=== PATIENT | female | born 1950 | race Caucasian/White ===

== ENCOUNTER 2016-11-29 13:26 | Day surgery (SDC) | payer BC ==
[2006-03-14 06:23] VITALS: BP 157/76
[~2016-11-29] VITALS: Ht 162.6 cm; Wt 76.3 kg
[~2016-11-29 13:26] MED LIST: FLAGYL500 MG PO; NO HOME MEDICATIONS; SERTRALINE100 MG PO
[2016-11-29 13:52] VITALS: BP 149/84; PULSE 109; TEMP 97.5
[2016-11-29] MEDS ORDERED: PROBIOTIC-MAJOR PO (13:57)
[2016-11-29] MEDS ORDERED: MULTIPLE VITAMI1 CAP PO (13:58)
[2016-11-29] MEDS ORDERED: VANCOMYCIN PO (13:59)
[2016-11-29 15:29] VITALS: BP 128/70; PULSE 92; TEMP 97.1
[2016-11-29 15:45] VITALS: BP 149/84; PULSE 99
[2016-11-29 16:00] VITALS: BP 110/55; PULSE 94
== END 2016-11-29 16:45 | disposition home or self-care (01) ==
LOC: SDCO 13:26
DX: K52.9 Noninfective gastroenteritis and colitis, unspecified (principal); K62.4 Stenosis of anus and rectum; K63.89 Other specified diseases of intestine; Z85.43 Personal history of malignant neoplasm of ovary
CPT/HCPCS: J2250; J3010; J7030

== ENCOUNTER 2018-05-13 13:09 | Day surgery (SDC) | payer BC ==
[2006-03-14 06:23] VITALS: BP 157/76
[~2018-05-13] VITALS: Ht 162.6 cm; Wt 77.7 kg
[~2018-05-13 13:09] MED LIST changes: +MULTIPLE VITAMI1 CAP PO; +PROBIOTIC-MAJOR PO; +VANCOMYCIN PO
[2018-05-13 13:59] VITALS: BP 124/59; PULSE 94; TEMP 98
[2018-05-13 15:10] VITALS: BP 115/81; PULSE 84; TEMP 97.6
[2018-05-13 15:30] VITALS: BP 119/54; PULSE 82
== END 2018-05-13 16:10 | disposition home or self-care (01) ==
LOC: SDCO 13:09
DX: K52.9 Noninfective gastroenteritis and colitis, unspecified (principal); A04.72 Enterocolitis due to Clostridium difficile, not specified as recurrent; K63.89 Other specified diseases of intestine; K92.1 Melena; C56.9 Malignant neoplasm of unspecified ovary; Z90.710 Acquired absence of both cervix and uterus; Z90.10 Acquired absence of unspecified breast and nipple; Z90.49 Acquired absence of other specified parts of digestive tract
CPT/HCPCS: J2250; J2405; J3010; J7030

== ENCOUNTER 2019-01-07 12:49 | Outpatient (CLI) | payer MEDICARE, OTHER ==
[2006-03-14 06:23] VITALS: BP 157/76
[~2019-01-07] VITALS: Ht 162.6 cm; Wt 71.1 kg
[2019-01-07 13:52] LABS: MEAN CELL VOLUME 90 fl (80.0-100.0); MEAN CORPUSCULAR HEMOGLOBIN 29 pg (27.0-31.0); MEAN CORPUSCULAR HGB CONC 32 g/dl (33.0-37.0); MEAN PLATELET VOLUME 9.2 fl (7.4-10.4); PLATELET COUNT 353 K/mm3 (130-400); RED BLOOD COUNT 3.78 M/mm3 (4.10-5.30); REDCELL DISTRIBUTION WIDTH-CV 12.8 % (11.5-14.5)
[2019-01-07 14:02] LABS: ALBUMIN 3.6 gm/dL (3.5-5.0); BILIRUBIN,TOTAL 0.2 mg/dL (0.0-1.0); CALCIUM 8.7 mg/dL (8.4-10.2); CREATININE, serum 0.58 (0.52-1.25); POTASSIUM 3.9 mmol/L (3.4-5.0); TOTAL PROTEIN 6.9 gm/dL (6.4-8.2)
[2019-01-07 14:09] LABS: HEMATOCRIT 33.9 % (37.0-47.0)
[2019-01-07 15:05] VITALS: BP 128/65; PULSE 82
[2019-01-07] MEDS ORDERED: CRESTOR 10MG10 MG PO (15:55)
[2019-01-07] MEDS ORDERED: LEXAPRO 10MG10 MG PO (15:56)
== END 2019-01-07 16:10 | disposition home or self-care (01) ==
LOC: EUO 12:49
PROVIDERS: Internal Medicine Gastroenterology
DX: K51.90 Ulcerative colitis, unspecified, without complications (principal); Z79.899 Other long term (current) drug therapy
CPT/HCPCS: J1200; J1644; J2920; J3380; J7050

== ENCOUNTER 2019-02-04 13:57 | Outpatient (CLI) | payer MEDICARE, OTHER ==
[2006-03-14 06:23] VITALS: BP 157/76
[~2019-02-04] VITALS: Ht 162.6 cm; Wt 70.1 kg
[~2019-02-04 13:57] MED LIST changes: +CRESTOR 10MG10 MG PO; +LEXAPRO 10MG10 MG PO
[2019-02-04 14:47] LABS: HEMOGLOBIN 10.1 g/dl (12.5-16.0); MEAN CELL VOLUME 91 fl (80.0-100.0); MEAN CORPUSCULAR HEMOGLOBIN 29 pg (27.0-31.0); MEAN CORPUSCULAR HGB CONC 31 g/dl (33.0-37.0); MEAN PLATELET VOLUME 9.1 fl (7.4-10.4); PLATELET COUNT 365 K/mm3 (130-400); RED BLOOD COUNT 3.55 M/mm3 (4.10-5.30); REDCELL DISTRIBUTION WIDTH-CV 12.7 % (11.5-14.5)
[2019-02-04 14:56] LABS: HEMATOCRIT 32.2 % (37.0-47.0)
[2019-02-04 14:59] LABS: ALBUMIN 3.5 gm/dL (3.5-5.0); BILIRUBIN,TOTAL 0.2 mg/dL (0.0-1.0); CALCIUM 8.6 mg/dL (8.4-10.2); CREATININE, serum 0.69 (0.52-1.25); POTASSIUM 4.1 mmol/L (3.4-5.0); TOTAL PROTEIN 6.5 gm/dL (6.4-8.2)
[2019-02-04] MEDS ORDERED: IMODIUM A-D2 MG PO (15:08)
[2019-02-04] MEDS ORDERED: PROBIOTIC FORMU1 CAP PO (15:08)
[2019-02-04 15:10] VITALS: BP 100/42; PULSE 70; TEMP 98.2
--- NOTE | 2019-02-04 19:43 | NUR ---
Lab was drawn for pt's mail in lab draw that she brought in today. This RN and Nino with Lab worked on getting this mailed off for the pt.
== END 2019-02-04 17:35 | disposition home or self-care (01) ==
LOC: EUO 13:57
PROVIDERS: Internal Medicine Gastroenterology
DX: K51.90 Ulcerative colitis, unspecified, without complications (principal); Z79.899 Other long term (current) drug therapy
CPT/HCPCS: J1200; J1644; J2930; J3380; J7050

== ENCOUNTER 2019-05-14 09:00 | Outpatient (RCR) | payer MEDICARE, OTHER ==
[2006-03-14 06:23] VITALS: BP 157/76
[2019-04-02 14:19] LABS: MEAN CELL VOLUME 87 fl (80.0-100.0); MEAN CORPUSCULAR HEMOGLOBIN 28 pg (27.0-31.0); MEAN CORPUSCULAR HGB CONC 32 g/dl (33.0-37.0); MEAN PLATELET VOLUME 9.1 fl (7.4-10.4); PLATELET COUNT 409 K/mm3 (130-400); RED BLOOD COUNT 3.88 M/mm3 (4.10-5.30)
[2019-04-02 14:28] LABS: ALBUMIN 3.9 gm/dL (3.5-5.0); BILIRUBIN,TOTAL 0.3 mg/dL (0.0-1.0); CALCIUM 9.1 mg/dL (8.4-10.2); CREATININE, serum 0.63 (0.52-1.25); POTASSIUM 4.2 mmol/L (3.4-5.0); TOTAL PROTEIN 7.1 gm/dL (6.4-8.2)
[2019-04-02 14:32] LABS: HEMATOCRIT 33.9 % (37.0-47.0)
[2019-04-02 15:35] VITALS: BP 101/66; PULSE 72; TEMP 97.4
[2019-04-02 16:05] VITALS: BP 115/56; PULSE 65; TEMP 97.4
[2019-04-02 16:35] VITALS: BP 118/70; PULSE 67; TEMP 97
[2019-04-02 17:05] VITALS: BP 106/55; PULSE 71; TEMP 97
[2019-04-02 17:35] VITALS: BP 111/68; PULSE 77; TEMP 97
[2019-04-16 11:18] LABS: HEMOGLOBIN 10.6 g/dl (12.5-16.0); MEAN CELL VOLUME 89 fl (80.0-100.0); MEAN CORPUSCULAR HEMOGLOBIN 28 pg (27.0-31.0); MEAN CORPUSCULAR HGB CONC 32 g/dl (33.0-37.0); MEAN PLATELET VOLUME 9.2 fl (7.4-10.4); PLATELET COUNT 372 K/mm3 (130-400); RED BLOOD COUNT 3.78 M/mm3 (4.10-5.30)
[2019-04-16 11:24] LABS: HEMATOCRIT 33.5 % (37.0-47.0)
[2019-04-16 11:27] LABS: ALBUMIN 3.7 gm/dL (3.5-5.0); BILIRUBIN,TOTAL 0.3 mg/dL (0.0-1.0); CALCIUM 8.8 mg/dL (8.4-10.2); CREATININE, serum 0.72 (0.52-1.25); POTASSIUM 4.2 mmol/L (3.4-5.0); TOTAL PROTEIN 6.7 gm/dL (6.4-8.2)
[2019-04-16 12:36] VITALS: BP 111/59; PULSE 65; TEMP 97.5
[2019-04-16 13:00] VITALS: BP 107/58; PULSE 65; TEMP 6
[2019-04-16 13:30] VITALS: BP 94/53; PULSE 59
[2019-04-16 14:00] VITALS: BP 103/51; PULSE 59; TEMP 97.8
[2019-04-16 14:30] VITALS: BP 103/54; PULSE 61
[2019-04-16 14:45] VITALS: BP 103/53; PULSE 61; TEMP 97.8
[~2019-05-14] VITALS: Ht 162.6 cm; Wt 67.6 kg
[2019-05-14] VITALS (7 sets, daily range): BP systolic 92–105; BP diastolic 44–70; PULSE 61–74; TEMP 97.9–98.2
[~2019-05-14 09:00] MED LIST changes: +CALCIUM CARBON500 M1 PO; +FOLIC ACID 11 MG/TA1 PO; +IMODIUM A-D2 MG PO; +INTEGRA PLUS1 CAP PO; +MULTI VITAMINS1 TAB PO; +NATURE'S BLEND1 T11 PO; +PROBIOTIC FORMU1 CAP PO; +TREXALL15 MG PO
[2019-05-14 09:33] LABS: HEMATOCRIT 34.2 % (37.0-47.0); MEAN CELL VOLUME 90 fl (80.0-100.0); MEAN CORPUSCULAR HEMOGLOBIN 29 pg (27.0-31.0); MEAN CORPUSCULAR HGB CONC 32 g/dl (33.0-37.0); MEAN PLATELET VOLUME 9.2 fl (7.4-10.4); PLATELET COUNT 329 K/mm3 (130-400)
[2019-05-14 09:45] LABS: ALBUMIN 3.8 gm/dL (3.5-5.0); BILIRUBIN,TOTAL 0.4 mg/dL (0.0-1.0); CREATININE, serum 0.69 (0.52-1.25); POTASSIUM 4.4 mmol/L (3.4-5.0); TOTAL PROTEIN 6.8 gm/dL (6.4-8.2)
== END 2019-05-14 13:24 | disposition still patient (30) ==
LOC: EUO 09:00
PROVIDERS: Family Medicine; Internal Medicine Gastroenterology
DX: K51.90 Ulcerative colitis, unspecified, without complications (principal); Z79.899 Other long term (current) drug therapy
CPT/HCPCS: J1644; J7050; Q5103

== ENCOUNTER 2019-06-25 12:54 | Outpatient (CLI) | payer MEDICARE, OTHER ==
[2006-03-14 06:23] VITALS: BP 157/76
[~2019-06-25] VITALS: Ht 162.6 cm; Wt 71.0 kg
[2019-06-25] MEDS ORDERED: VANCOCIN H125 MG/CAP PO (13:35)
[2019-06-25 13:44] LABS: ALBUMIN 3.7 gm/dL (3.5-5.0); BILIRUBIN,TOTAL 0.3 mg/dL (0.0-1.0); CALCIUM 8.8 mg/dL (8.4-10.2); CREATININE, serum 0.69 (0.52-1.25); POTASSIUM 4.5 mmol/L (3.4-5.0); TOTAL PROTEIN 6.5 gm/dL (6.4-8.2)
[2019-06-25 13:50] LABS: HEMOGLOBIN 10.3 g/dl (12.5-16.0); MEAN CELL VOLUME 91 fl (80.0-100.0); MEAN CORPUSCULAR HEMOGLOBIN 29 pg (27.0-31.0); MEAN CORPUSCULAR HGB CONC 32 g/dl (33.0-37.0); MEAN PLATELET VOLUME 9.4 fl (7.4-10.4); PLATELET COUNT 303 K/mm3 (130-400); RED BLOOD COUNT 3.53 M/mm3 (4.10-5.30); REDCELL DISTRIBUTION WIDTH-CV 15.9 % (11.5-14.5)
[2019-06-25 13:52] LABS: HEMATOCRIT 32.2 % (37.0-47.0)
[2019-06-25 14:55] VITALS: BP 110/59; PULSE 64; TEMP 97.6
[2019-06-25 15:25] VITALS: BP 106/49; PULSE 74; TEMP 98
[2019-06-25 15:55] VITALS: BP 105/81; PULSE 75; TEMP 97.8
[2019-06-25 16:25] VITALS: BP 109/60; PULSE 87; TEMP 97.4
--- NOTE | 2019-06-25 16:36 | NUR ---
Report to Redd Farias who assumed care at this time.
--- NOTE | 2019-06-25 17:02 | NUR ---
infusion completed, port flushed per protocol then d'cd. pt dischaged ambulation
== END 2019-06-25 17:02 | disposition home or self-care (01) ==
LOC: EUO 12:54
PROVIDERS: Internal Medicine Gastroenterology
DX: K51.90 Ulcerative colitis, unspecified, without complications (principal)
CPT/HCPCS: J1644; J7050; Q5103

== ENCOUNTER 2019-08-06 12:48 | Outpatient (CLI) | payer MEDICARE, OTHER ==
[2006-03-14 06:23] VITALS: BP 157/76
[~2019-08-06] VITALS: Ht 162.6 cm; Wt 69.7 kg
[2019-08-06] VITALS (11 sets, daily range): BP systolic 101–121; BP diastolic 47–66; PULSE 65–80; TEMP 98.3–98.6
[~2019-08-06 12:48] MED LIST changes: +VANCOCIN H125 MG/CAP PO
[2019-08-06 13:25] LABS: HEMOGLOBIN 11.2 g/dl (12.5-16.0); MEAN CELL VOLUME 93 fl (80.0-100.0); MEAN CORPUSCULAR HEMOGLOBIN 30 pg (27.0-31.0); MEAN CORPUSCULAR HGB CONC 32 g/dl (33.0-37.0); MEAN PLATELET VOLUME 9.4 fl (7.4-10.4); PLATELET COUNT 336 K/mm3 (130-400); REDCELL DISTRIBUTION WIDTH-CV 14.4 % (11.5-14.5)
[2019-08-06 13:26] LABS: HEMATOCRIT 35.2 % (37.0-47.0)
[2019-08-06 13:34] LABS: ALBUMIN 3.8 gm/dL (3.5-5.0); BILIRUBIN,TOTAL 0.4 mg/dL (0.0-1.0); CALCIUM 8.6 mg/dL (8.4-10.2); CREATININE, serum 0.63 (0.52-1.25); POTASSIUM 4.4 mmol/L (3.4-5.0); TOTAL PROTEIN 6.9 gm/dL (6.4-8.2)
== END 2019-08-06 17:59 | disposition home or self-care (01) ==
LOC: EUO 12:48
PROVIDERS: Internal Medicine Gastroenterology
DX: K51.90 Ulcerative colitis, unspecified, without complications (principal); Z79.899 Other long term (current) drug therapy
CPT/HCPCS: J1644; J2916; J7050; Q5103

== ENCOUNTER 2019-08-20 11:00 | Outpatient (RCR) | payer MEDICARE, OTHER ==
[2006-03-14 06:23] VITALS: BP 157/76
[2019-08-13 11:52] VITALS: BP 100/61; PULSE 68
[2019-08-13 14:15] VITALS: BP 110/49; PULSE 64; TEMP 98.1
[2019-08-13 15:55] VITALS: BP 95/58; PULSE 68; TEMP 98
[2019-08-13 16:30] VITALS: BP 100/50; PULSE 67; TEMP 98
[2019-08-13 17:00] VITALS: BP 106/49; PULSE 68
[2019-08-13 17:38] VITALS: BP 105/49; PULSE 76
[~2019-08-20] VITALS: Ht 162.6 cm; Wt 69.1 kg
[2019-08-20 11:06] VITALS: BP 103/49; PULSE 73; TEMP 98.2
[2019-08-20 11:48] VITALS: BP 103/44; PULSE 65; TEMP 98
[2019-08-20 12:18] VITALS: BP 110/55; PULSE 73; TEMP 98.2
[2019-08-20 12:50] VITALS: BP 97/51; PULSE 67
[2019-08-20 13:47] VITALS: BP 110/58; PULSE 66; TEMP 97.6
== END 2019-08-20 13:56 | disposition home or self-care (01) ==
LOC: EUO 11:00
DX: D50.9 Iron deficiency anemia, unspecified (principal)
CPT/HCPCS: J1644; J2916; J7050; Q9967

== ENCOUNTER 2019-09-17 08:39 | Outpatient (CLI) | payer MEDICARE, OTHER ==
[2006-03-14 06:23] VITALS: BP 157/76
[2019-09-17] VITALS (7 sets, daily range): BP systolic 107–127; BP diastolic 57–64; PULSE 63–74; TEMP 97.6–98
[2019-09-17 09:14] LABS: HEMOGLOBIN 11.8 g/dl (12.5-16.0); MEAN CELL VOLUME 92 fl (80.0-100.0); MEAN CORPUSCULAR HEMOGLOBIN 30 pg (27.0-31.0); MEAN CORPUSCULAR HGB CONC 33 g/dl (33.0-37.0); MEAN PLATELET VOLUME 9.5 fl (7.4-10.4); PLATELET COUNT 324 K/mm3 (130-400); RED BLOOD COUNT 3.94 M/mm3 (4.10-5.30); REDCELL DISTRIBUTION WIDTH-CV 14.9 % (11.5-14.5)
[2019-09-17 09:16] LABS: HEMATOCRIT 36.3 % (37.0-47.0)
[2019-09-17 09:22] LABS: ALBUMIN 3.9 gm/dL (3.5-5.0); BILIRUBIN,TOTAL 0.4 mg/dL (0.0-1.0); CALCIUM 9.3 mg/dL (8.4-10.2); CREATININE, serum 0.7 (0.52-1.25); POTASSIUM 3.8 mmol/L (3.4-5.0); TOTAL PROTEIN 6.9 gm/dL (6.4-8.2)
[2019-09-17] MEDS ORDERED: TAMIFLU 75MG75 MG PO (12:37)
[2019-09-17] MEDS ORDERED: TURMERIC500 MG PO (12:37)
[2019-09-17] MEDS ORDERED: GINGER500 MG PO (12:38)
[2019-09-17] MEDS ORDERED: VITAMIN D 1001000 IU PO (12:39)
[2019-09-17] MEDS ORDERED: vitamin D PO (12:47)
[2019-09-17] MEDS ORDERED: PREDNISONE20 MG PO (12:48)
== END 2019-09-17 14:32 | disposition home or self-care (01) ==
LOC: EUO 08:39
PROVIDERS: Internal Medicine Gastroenterology
DX: K51.90 Ulcerative colitis, unspecified, without complications (principal)
CPT/HCPCS: J1644; J7050; Q5103

== ENCOUNTER 2019-10-29 08:44 | Outpatient (CLI) | payer MEDICARE, OTHER ==
[2006-03-14 06:23] VITALS: BP 157/76
[~2019-10-29] VITALS: Ht 10.2 cm; Wt 74.4 kg
[~2019-10-29 08:44] MED LIST changes: +GINGER500 MG PO; +PREDNISONE20 MG PO; +TAMIFLU 75MG75 MG PO; +TURMERIC500 MG PO; +VITAMIN D 1001000 IU PO; +vitamin D PO
[2019-10-29 09:09] VITALS: BP 113/58; PULSE 73; TEMP 98.3
[2019-10-29 09:12] LABS: HEMOGLOBIN 12.2 g/dl (12.5-16.0); MEAN CELL VOLUME 93 fl (80.0-100.0); MEAN CORPUSCULAR HEMOGLOBIN 30 pg (27.0-31.0); MEAN CORPUSCULAR HGB CONC 32 g/dl (33.0-37.0); PLATELET COUNT 307 K/mm3 (130-400); RED BLOOD COUNT 4.07 M/mm3 (4.10-5.30); REDCELL DISTRIBUTION WIDTH-CV 13.9 % (11.5-14.5)
[2019-10-29] MEDS ORDERED: OMEGA-3 1000 MG1 CAP PO (09:20)
[2019-10-29 09:31] LABS: ALBUMIN 3.8 gm/dL (3.5-5.0); BILIRUBIN,TOTAL 0.5 mg/dL (0.0-1.0); CALCIUM 8.9 mg/dL (8.4-10.2); CREATININE, serum 0.69 (0.52-1.25); POTASSIUM 4.1 mmol/L (3.4-5.0); TOTAL PROTEIN 6.8 gm/dL (6.4-8.2)
[2019-10-29 10:20] VITALS: BP 103/53; PULSE 77; TEMP 98.1
[2019-10-29 10:40] VITALS: BP 117/58; PULSE 72
[2019-10-29 11:10] VITALS: BP 107/55; PULSE 76
[2019-10-29 11:40] VITALS: BP 106/54; PULSE 63
[2019-10-29 12:20] VITALS: BP 115/57; PULSE 66; TEMP 98
== END 2019-10-29 15:37 | disposition home or self-care (01) ==
LOC: EUO 08:44
PROVIDERS: Internal Medicine Gastroenterology
DX: K51.90 Ulcerative colitis, unspecified, without complications (principal); Z79.899 Other long term (current) drug therapy
CPT/HCPCS: J1644; J7050; Q5103

== ENCOUNTER 2019-12-10 12:38 | Outpatient (CLI) | payer MEDICARE, OTHER ==
[2006-03-14 06:23] VITALS: BP 157/76
[~2019-12-10] VITALS: Ht 162.6 cm; Wt 78.1 kg
[~2019-12-10 12:38] MED LIST changes: +OMEGA-3 1000 MG1 CAP PO
[2019-12-10 13:49] LABS: HEMOGLOBIN 11.8 g/dl (12.5-16.0); MEAN CELL VOLUME 95 fl (80.0-100.0); MEAN CORPUSCULAR HEMOGLOBIN 31 pg (27.0-31.0); MEAN CORPUSCULAR HGB CONC 33 g/dl (33.0-37.0); MEAN PLATELET VOLUME 9.5 fl (7.4-10.4); PLATELET COUNT 269 K/mm3 (130-400); RED BLOOD COUNT 3.81 M/mm3 (4.10-5.30); REDCELL DISTRIBUTION WIDTH-CV 12.2 % (11.5-14.5)
[2019-12-10 14:02] LABS: BILIRUBIN,TOTAL 0.5 mg/dL (0.0-1.0); CALCIUM 9.1 mg/dL (8.4-10.2); CREATININE, serum 0.65 (0.52-1.25); POTASSIUM 4.6 mmol/L (3.4-5.0); TOTAL PROTEIN 7.2 gm/dL (6.4-8.2)
[2019-12-10 14:09] LABS: HEMATOCRIT 36.3 % (37.0-47.0)
[2019-12-10 15:10] VITALS: BP 113/65; PULSE 84; TEMP 98.1
[2019-12-10 15:40] VITALS: BP 97/43; PULSE 81
[2019-12-10 16:15] VITALS: BP 113/55; PULSE 65
[2019-12-10 16:45] VITALS: BP 107/53; PULSE 66
[2019-12-10 17:15] VITALS: BP 105/51; PULSE 68; TEMP 98.1
== END 2019-12-10 17:43 | disposition home or self-care (01) ==
LOC: EUO 12:38
PROVIDERS: Internal Medicine Gastroenterology
DX: K51.90 Ulcerative colitis, unspecified, without complications (principal); Z79.899 Other long term (current) drug therapy
CPT/HCPCS: J1644; J7050; Q5103

== ENCOUNTER 2020-01-21 13:29 | Outpatient (CLI) | payer MEDICARE, OTHER ==
[2006-03-14 06:23] VITALS: BP 157/76
[~2020-01-21] VITALS: Ht 162.6 cm; Wt 79.2 kg
[2020-01-21 14:28] LABS: HEMOGLOBIN 11.8 g/dl (12.5-16.0); MEAN CELL VOLUME 95 fl (80.0-100.0); MEAN CORPUSCULAR HEMOGLOBIN 31 pg (27.0-31.0); MEAN CORPUSCULAR HGB CONC 33 g/dl (33.0-37.0); MEAN PLATELET VOLUME 9.5 fl (7.4-10.4); PLATELET COUNT 260 K/mm3 (130-400); REDCELL DISTRIBUTION WIDTH-CV 12.3 % (11.5-14.5)
[2020-01-21 14:29] LABS: HEMATOCRIT 35.9 % (37.0-47.0)
[2020-01-21 14:39] LABS: ALBUMIN 4.1 gm/dL (3.5-5.0); BILIRUBIN,TOTAL 0.5 mg/dL (0.0-1.0); CREATININE, serum 0.74 (0.52-1.25); POTASSIUM 4.2 mmol/L (3.4-5.0); TOTAL PROTEIN 7.4 gm/dL (6.4-8.2)
[2020-01-21 15:00] VITALS: BP 112/44; PULSE 72; TEMP 97.8
[2020-01-21] MEDS ORDERED: PREDNISONE 5MG5 MG PO (15:35)
[2020-01-21 16:00] VITALS: BP 101/49; PULSE 88; TEMP 97.8
[2020-01-21 16:30] VITALS: BP 102/52; PULSE 72; TEMP 97.8
[2020-01-21 17:00] VITALS: BP 102/52; PULSE 73; TEMP 97.8
[2020-01-21 17:30] VITALS: BP 99/49; PULSE 68; TEMP 98
[2020-01-21 18:00] VITALS: BP 100/50; PULSE 75; TEMP 98.1
== END 2020-01-21 18:26 | disposition home or self-care (01) ==
LOC: EUO 13:29
PROVIDERS: Internal Medicine Gastroenterology
DX: K51.90 Ulcerative colitis, unspecified, without complications (principal); Z79.899 Other long term (current) drug therapy
CPT/HCPCS: J1644; J7050; Q5103

== ENCOUNTER 2020-03-03 13:22 | Outpatient (CLI) | payer MEDICARE, OTHER ==
[2006-03-14 06:23] VITALS: BP 157/76
[~2020-03-03] VITALS: Ht 162.6 cm; Wt 81.4 kg
[~2020-03-03 13:22] MED LIST changes: +PREDNISONE1 MG PO
[2020-03-03 14:06] LABS: HEMATOCRIT 37.5 % (37.0-47.0); HEMOGLOBIN 12.6 g/dl (12.5-16.0); MEAN CELL VOLUME 94 fl (80.0-100.0); MEAN CORPUSCULAR HEMOGLOBIN 31 pg (27.0-31.0); MEAN CORPUSCULAR HGB CONC 34 g/dl (33.0-37.0); MEAN PLATELET VOLUME 11.8 fl (7.4-10.4); PLATELET COUNT 58 K/mm3 (130-400); RED BLOOD COUNT 4.01 M/mm3 (4.10-5.30); REDCELL DISTRIBUTION WIDTH-CV 12.8 % (11.5-14.5)
[2020-03-03 14:20] LABS: ALBUMIN 3.9 gm/dL (3.5-5.0); BILIRUBIN,TOTAL 0.4 mg/dL (0.0-1.0); CREATININE, serum 0.67 (0.52-1.25); POTASSIUM 4.4 mmol/L (3.4-5.0)
[2020-03-03 15:25] VITALS: BP 109/84; PULSE 64; TEMP 98.7
[2020-03-03 15:55] VITALS: BP 109/56; PULSE 65
[2020-03-03 16:25] VITALS: BP 113/64; PULSE 64
[2020-03-03 16:55] VITALS: BP 110/56; PULSE 67
[2020-03-03 17:25] VITALS: BP 108/59; PULSE 65
== END 2020-03-03 18:38 | disposition home or self-care (01) ==
LOC: EUO 13:22
PROVIDERS: Internal Medicine Gastroenterology
DX: K51.90 Ulcerative colitis, unspecified, without complications (principal)
CPT/HCPCS: J1644; J7050; Q5103

== ENCOUNTER 2020-04-14 09:57 | Outpatient (CLI) | payer MEDICARE, OTHER ==
[2006-03-14 06:23] VITALS: BP 157/76
[~2020-04-14] VITALS: Ht 162.6 cm; Wt 82.9 kg
[2020-04-14 10:47] LABS: BASO # 0.1 (0.0-0.2); BASO % 0.8 % (0.0-2.0); EOS # 0.2 (0.0-0.7); EOS % 2.5 % (0-4.0); GRAN # 3.4 (1.4-6.5); GRAN % 52.9 % (42.2-75.2); HEMATOCRIT 37.1 % (37.0-47.0); HEMOGLOBIN 12.4 g/dl (12.5-16.0); LYMPH # 2.1 (1.2-3.4); LYMPH % 32.1 % (20.0-51.0); MEAN CELL VOLUME 94 fl (80.0-100.0); MEAN CORPUSCULAR HEMOGLOBIN 31 pg (27.0-31.0); MEAN CORPUSCULAR HGB CONC 33 g/dl (33.0-37.0); MEAN PLATELET VOLUME 9.6 fl (7.4-10.4); MONO # 0.7 (0.1-0.6); MONO % 11.5 % (1.7-9.3); PLATELET COUNT 294 K/mm3 (130-400); RED BLOOD COUNT 3.96 M/mm3 (4.10-5.30); REDCELL DISTRIBUTION WIDTH-CV 12.5 % (11.5-14.5)
[2020-04-14 10:59] LABS: BILIRUBIN,TOTAL 0.6 mg/dL (0.0-1.0); CALCIUM 8.7 mg/dL (8.4-10.2); CREATININE, serum 0.66 (0.52-1.25); POTASSIUM 4.2 mmol/L (3.4-5.0); TOTAL PROTEIN 7.1 gm/dL (6.4-8.2)
[2020-04-14 11:12] VITALS: BP 120/70; PULSE 71; TEMP 97.9
[2020-04-14 11:50] VITALS: BP 122/72; PULSE 69
[2020-04-14 12:20] VITALS: BP 117/60; PULSE 64
[2020-04-14 12:50] VITALS: BP 116/69; PULSE 62
[2020-04-14 13:20] VITALS: BP 113/68; PULSE 62
== END 2020-04-14 16:57 | disposition home or self-care (01) ==
LOC: EUO 09:57
PROVIDERS: Internal Medicine Gastroenterology
DX: Z79.899 Other long term (current) drug therapy (principal)
CPT/HCPCS: J1644; J7050; Q5103

== ENCOUNTER 2020-05-26 10:47 | Outpatient (CLI) | payer MEDICARE, OTHER ==
[2006-03-14 06:23] VITALS: BP 157/76
[~2020-05-26] VITALS: Ht 162.6 cm; Wt 84.8 kg
[2020-05-26 11:35] LABS: BASO # 0.1 (0.0-0.2); BASO % 0.9 % (0.0-2.0); EOS # 0.2 (0.0-0.7); GRAN # 2.7 (1.4-6.5); GRAN % 46.3 % (42.2-75.2); HEMOGLOBIN 11.8 g/dl (12.5-16.0); LYMPH % 35.7 % (20.0-51.0); MEAN CELL VOLUME 94 fl (80.0-100.0); MEAN CORPUSCULAR HEMOGLOBIN 31 pg (27.0-31.0); MEAN CORPUSCULAR HGB CONC 33 g/dl (33.0-37.0); MEAN PLATELET VOLUME 9.8 fl (7.4-10.4); MONO # 0.7 (0.1-0.6); MONO % 12.9 % (1.7-9.3); PLATELET COUNT 288 K/mm3 (130-400); RED BLOOD COUNT 3.84 M/mm3 (4.10-5.30); REDCELL DISTRIBUTION WIDTH-CV 12.4 % (11.5-14.5)
[2020-05-26 11:36] LABS: HEMATOCRIT 36.1 % (37.0-47.0)
[2020-05-26 11:42] LABS: ALBUMIN 3.9 gm/dL (3.5-5.0); BILIRUBIN,TOTAL 0.4 mg/dL (0.0-1.0); CALCIUM 8.7 mg/dL (8.4-10.2); CREATININE, serum 1.12 (0.52-1.25); POTASSIUM 4.3 mmol/L (3.4-5.0); TOTAL PROTEIN 7.1 gm/dL (6.4-8.2)
[2020-05-26 13:00] VITALS: BP 110/47; PULSE 72; TEMP 98
[2020-05-26 13:30] VITALS: BP 111/72; PULSE 72
[2020-05-26 14:00] VITALS: BP 106/61; PULSE 72
[2020-05-26 14:30] VITALS: BP 104/67; PULSE 59
[2020-05-26 15:00] VITALS: BP 111/70; PULSE 62
[2020-05-26 15:32] VITALS: BP 105/63; PULSE 68; TEMP 98.1
== END 2020-05-26 15:39 | disposition home or self-care (01) ==
LOC: EUO 10:47
DX: K51.90 Ulcerative colitis, unspecified, without complications (principal); Z79.899 Other long term (current) drug therapy
CPT/HCPCS: J1644; J7050; Q5103

== ENCOUNTER → 2020-07-12 | Outpatient (CLI) | payer MEDICARE, OTHER ==
[2006-03-14 06:23] VITALS: BP 157/76
[2020-07-12 13:16] LABS: BASO % 0.7 % (0.0-2.0); EOS # 0.2 (0.0-0.7); GRAN # 3.1 (1.4-6.5); GRAN % 50.2 % (42.2-75.2); HEMOGLOBIN 12.1 g/dl (12.5-16.0); LYMPH # 2.2 (1.2-3.4); LYMPH % 35.2 % (20.0-51.0); MEAN CELL VOLUME 93 fl (80.0-100.0); MEAN CORPUSCULAR HEMOGLOBIN 31 pg (27.0-31.0); MEAN CORPUSCULAR HGB CONC 33 g/dl (33.0-37.0); MEAN PLATELET VOLUME 9.7 fl (7.4-10.4); MONO # 0.7 (0.1-0.6); MONO % 10.7 % (1.7-9.3); PLATELET COUNT 263 K/mm3 (130-400); RED BLOOD COUNT 3.94 M/mm3 (4.10-5.30); REDCELL DISTRIBUTION WIDTH-CV 12.4 % (11.5-14.5)
[2020-07-12 13:18] LABS: HEMATOCRIT 36.5 % (37.0-47.0)
[2020-07-12 13:25] LABS: ALBUMIN 3.7 gm/dL (3.5-5.0); BILIRUBIN,TOTAL 0.4 mg/dL (0.0-1.0); CALCIUM 8.8 mg/dL (8.4-10.2); CREATININE, serum 0.88 (0.52-1.25); POTASSIUM 4.3 mmol/L (3.4-5.0); TOTAL PROTEIN 6.7 gm/dL (6.4-8.2)
[2020-07-12 14:47] VITALS: BP 109/50; PULSE 72; TEMP 97.8
[2020-07-12 15:30] VITALS: BP 110/44; PULSE 66
[2020-07-12 16:00] VITALS: BP 108/48; PULSE 75
[2020-07-12 16:30] VITALS: BP 108/45; PULSE 64
[2020-07-12 17:00] VITALS: BP 113/49; PULSE 65
== END ==
LOC: EUO 07-07 13:00
PROVIDERS: Internal Medicine Gastroenterology
DX: K51.90 Ulcerative colitis, unspecified, without complications (principal); Z79.899 Other long term (current) drug therapy
CPT/HCPCS: J1644; J7050; Q5103

== ENCOUNTER 2020-08-23 12:48 | Outpatient (CLI) | payer MEDICARE, OTHER ==
[2006-03-14 06:23] VITALS: BP 157/76
[~2020-08-23] VITALS: Ht 162.6 cm; Wt 84.3 kg
[2020-08-23 13:20] LABS: BASO % 0.7 % (0.0-2.0); EOS # 0.2 (0.0-0.7); GRAN # 2.5 (1.4-6.5); GRAN % 42.8 % (42.2-75.2); HEMATOCRIT 37.6 % (37.0-47.0); HEMOGLOBIN 12.5 g/dl (12.5-16.0); LYMPH # 2.4 (1.2-3.4); LYMPH % 42.3 % (20.0-51.0); MEAN CELL VOLUME 92 fl (80.0-100.0); MEAN CORPUSCULAR HEMOGLOBIN 31 pg (27.0-31.0); MEAN CORPUSCULAR HGB CONC 33 g/dl (33.0-37.0); MEAN PLATELET VOLUME 9.8 fl (7.4-10.4); MONO # 0.6 (0.1-0.6); PLATELET COUNT 275 K/mm3 (130-400); REDCELL DISTRIBUTION WIDTH-CV 12.7 % (11.5-14.5)
[2020-08-23 13:30] LABS: BILIRUBIN,TOTAL 0.3 mg/dL (0.0-1.0); CALCIUM 8.7 mg/dL (8.4-10.2); CREATININE, serum 0.69 (0.52-1.25); POTASSIUM 4.3 mmol/L (3.4-5.0); TOTAL PROTEIN 7.2 gm/dL (6.4-8.2)
[2020-08-23 14:15] VITALS: BP 116/41; PULSE 65; TEMP 97.3
[2020-08-23 14:45] VITALS: BP 10/63; PULSE 63; TEMP 97.3
[2020-08-23 15:15] VITALS: BP 114/54; PULSE 61; TEMP 97.3
[2020-08-23 15:45] VITALS: BP 115/52; PULSE 74; TEMP 97.3
[2020-08-23 16:15] VITALS: BP 124/56; PULSE 65; TEMP 97.3
== END 2020-08-23 16:20 | disposition home or self-care (01) ==
LOC: EUO 12:48
PROVIDERS: Internal Medicine Gastroenterology
DX: K51.00 Ulcerative (chronic) pancolitis without complications (principal); D84.9 Immunodeficiency, unspecified; M85.80 Other specified disorders of bone density and structure, unspecified site; Z79.899 Other long term (current) drug therapy
CPT/HCPCS: J1644; J7050; Q5103

== ENCOUNTER 2020-10-04 12:48 | Outpatient (CLI) | payer MEDICARE, OTHER ==
[2006-03-14 06:23] VITALS: BP 157/76
[~2020-10-04] VITALS: Ht 162.6 cm; Wt 4.9 kg
[2020-10-04 13:30] LABS: BASO # 0.1 (0.0-0.2); EOS # 0.2 (0.0-0.7); GRAN # 2.7 (1.4-6.5); GRAN % 43.8 % (42.2-75.2); HEMATOCRIT 39.6 % (37.0-47.0); LYMPH # 2.5 (1.2-3.4); MEAN CELL VOLUME 93 fl (80.0-100.0); MEAN CORPUSCULAR HEMOGLOBIN 31 pg (27.0-31.0); MEAN CORPUSCULAR HGB CONC 33 g/dl (33.0-37.0); MEAN PLATELET VOLUME 9.9 fl (7.4-10.4); MONO # 0.8 (0.1-0.6); PLATELET COUNT 272 K/mm3 (130-400); RED BLOOD COUNT 4.25 M/mm3 (4.10-5.30); REDCELL DISTRIBUTION WIDTH-CV 12.9 % (11.5-14.5)
[2020-10-04 13:33] LABS: BILIRUBIN,TOTAL 0.4 mg/dL (0.0-1.0); CREATININE, serum 0.78 (0.52-1.25); TOTAL PROTEIN 7.2 gm/dL (6.4-8.2)
[2020-10-04 15:00] VITALS: BP 109/71; PULSE 69; TEMP 98.4
[2020-10-04 15:30] VITALS: BP 104/62; PULSE 78; TEMP 98.4
[2020-10-04 16:00] VITALS: BP 100/64; PULSE 67; TEMP 98.4
[2020-10-04 17:04] VITALS: BP 109/68; PULSE 62; TEMP 98.4
== END 2020-10-04 17:14 | disposition home or self-care (01) ==
LOC: EUO
PROVIDERS: Internal Medicine Gastroenterology
DX: K51.90 Ulcerative colitis, unspecified, without complications (principal); Z79.899 Other long term (current) drug therapy
CPT/HCPCS: J1644; J7050; Q5103

== ENCOUNTER 2020-11-15 12:56 | Outpatient (CLI) | payer MEDICARE, OTHER ==
[2006-03-14 06:23] VITALS: BP 157/76
[~2020-11-15] VITALS: Ht 162.6 cm; Wt 85.8 kg
[2020-11-15 13:33] LABS: BASO % 0.7 % (0.0-2.0); EOS # 0.3 (0.0-0.7); EOS % 4.1 % (0-4.0); GRAN # 2.7 (1.4-6.5); GRAN % 43.6 % (42.2-75.2); HEMOGLOBIN 12.2 g/dl (12.5-16.0); LYMPH # 2.3 (1.2-3.4); LYMPH % 37.7 % (20.0-51.0); MEAN CELL VOLUME 91 fl (80.0-100.0); MEAN CORPUSCULAR HEMOGLOBIN 31 pg (27.0-31.0); MEAN CORPUSCULAR HGB CONC 34 g/dl (33.0-37.0); MEAN PLATELET VOLUME 10.1 fl (7.4-10.4); MONO # 0.8 (0.1-0.6); MONO % 13.7 % (1.7-9.3); PLATELET COUNT 250 K/mm3 (130-400); RED BLOOD COUNT 3.96 M/mm3 (4.10-5.30)
[2020-11-15 13:35] LABS: HEMATOCRIT 36.2 % (37.0-47.0)
[2020-11-15 13:46] LABS: ALBUMIN 3.8 gm/dL (3.5-5.0); BILIRUBIN,TOTAL 0.2 mg/dL (0.0-1.0); CALCIUM 8.6 mg/dL (8.4-10.2); CREATININE, serum 0.71 (0.52-1.25); TOTAL PROTEIN 7.1 gm/dL (6.4-8.2)
[2020-11-15 16:12] VITALS: BP 108/48; PULSE 71; TEMP 98
== END 2020-11-15 17:02 | disposition home or self-care (01) ==
LOC: EUO 12:56
PROVIDERS: Internal Medicine Gastroenterology
DX: K51.90 Ulcerative colitis, unspecified, without complications (principal); Z79.899 Other long term (current) drug therapy
CPT/HCPCS: J1644; J7050; Q5103

== ENCOUNTER 2020-12-27 12:55 | Outpatient (CLI) | payer MEDICARE, OTHER ==
[2006-03-14 06:23] VITALS: BP 157/76
[~2020-12-27] VITALS: Ht 162.6 cm; Wt 84.9 kg
[2020-12-27 13:24] LABS: BASO # 0.1 (0.0-0.2); BASO % 0.8 % (0.0-2.0); EOS # 0.2 (0.0-0.7); EOS % 2.9 % (0-4.0); GRAN # 2.8 (1.4-6.5); GRAN % 42.3 % (42.2-75.2); HEMATOCRIT 37.3 % (37.0-47.0); HEMOGLOBIN 12.4 g/dl (12.5-16.0); LYMPH # 2.7 (1.2-3.4); MEAN CELL VOLUME 93 fl (80.0-100.0); MEAN CORPUSCULAR HEMOGLOBIN 31 pg (27.0-31.0); MEAN CORPUSCULAR HGB CONC 33 g/dl (33.0-37.0); MEAN PLATELET VOLUME 10.3 fl (7.4-10.4); MONO # 0.8 (0.1-0.6); MONO % 12.8 % (1.7-9.3); PLATELET COUNT 255 K/mm3 (130-400); RED BLOOD COUNT 4.02 M/mm3 (4.10-5.30); REDCELL DISTRIBUTION WIDTH-CV 12.8 % (11.5-14.5)
[2020-12-27 13:25] VITALS: BP 123/64; PULSE 69; TEMP 98.4
[2020-12-27 13:38] LABS: ALBUMIN 3.9 gm/dL (3.5-5.0); CALCIUM 9.1 mg/dL (8.4-10.2); POTASSIUM 3.8 mmol/L (3.4-5.0); TOTAL PROTEIN 7.3 gm/dL (6.4-8.2)
[2020-12-27 13:45] LABS: BILIRUBIN,TOTAL 0.4 mg/dL (0.0-1.0); CREATININE, serum 0.78 (0.52-1.25)
[2020-12-27 14:30] VITALS: BP 129/69; PULSE 77
[2020-12-27 15:00] VITALS: BP 116/61; PULSE 65
[2020-12-27 15:32] VITALS: BP 114/72; PULSE 69
[2020-12-27 16:00] VITALS: BP 113/71; PULSE 65
== END 2020-12-27 17:00 | disposition home or self-care (01) ==
LOC: EUO 12:55
PROVIDERS: Internal Medicine Gastroenterology
DX: K51.90 Ulcerative colitis, unspecified, without complications (principal); Z79.899 Other long term (current) drug therapy
CPT/HCPCS: J1644; J7050; Q5103

== ENCOUNTER 2021-02-07 12:39 | Outpatient (CLI) | payer MEDICARE, OTHER ==
[2006-03-14 06:23] VITALS: BP 157/76
[~2021-02-07] VITALS: Ht 162.6 cm; Wt 84.0 kg
[2021-02-07 13:18] LABS: BASO # 0.1 (0.0-0.2); BASO % 0.8 % (0.0-2.0); EOS # 0.2 (0.0-0.7); EOS % 2.5 % (0-4.0); GRAN # 3.6 (1.4-6.5); HEMATOCRIT 39.6 % (37.0-47.0); HEMOGLOBIN 13.1 g/dl (12.5-16.0); LYMPH # 2.6 (1.2-3.4); LYMPH % 36.7 % (20.0-51.0); MEAN CELL VOLUME 91 fl (80.0-100.0); MEAN CORPUSCULAR HEMOGLOBIN 30 pg (27.0-31.0); MEAN CORPUSCULAR HGB CONC 33 g/dl (33.0-37.0); MEAN PLATELET VOLUME 9.7 fl (7.4-10.4); MONO # 0.7 (0.1-0.6); MONO % 9.7 % (1.7-9.3); PLATELET COUNT 290 K/mm3 (130-400); RED BLOOD COUNT 4.36 M/mm3 (4.10-5.30); REDCELL DISTRIBUTION WIDTH-CV 12.6 % (11.5-14.5)
[2021-02-07 13:29] LABS: ALBUMIN 4.1 gm/dL (3.5-5.0); BILIRUBIN,TOTAL 0.3 mg/dL (0.0-1.0); CALCIUM 9.4 mg/dL (8.4-10.2); CREATININE, serum 0.73 (0.52-1.25); TOTAL PROTEIN 7.7 gm/dL (6.4-8.2)
[2021-02-07 14:15] VITALS: BP 112/74; PULSE 74; TEMP 98
[2021-02-07 14:45] VITALS: BP 116/48; PULSE 59
[2021-02-07 15:15] VITALS: BP 110/73; BP 115/67; PULSE 58; PULSE 66; TEMP 97.8
[2021-02-07 15:46] VITALS: BP 112/73; PULSE 58
[2021-02-07 16:30] VITALS: BP 106/68; PULSE 66; TEMP 98
== END 2021-02-07 16:40 | disposition home or self-care (01) ==
LOC: EUO 12:39
DX: Z45.2 Encounter for adjustment and management of vascular access device (principal); K51.00 Ulcerative (chronic) pancolitis without complications
CPT/HCPCS: J1644; J7050; Q5103

== ENCOUNTER 2021-03-21 12:45 | Outpatient (CLI) | payer MEDICARE, OTHER ==
[2006-03-14 06:23] VITALS: BP 157/76
[~2021-03-21] VITALS: Ht 162.6 cm; Wt 83.7 kg
[2021-03-21] VITALS (7 sets, daily range): BP systolic 109–126; BP diastolic 47–66; PULSE 60–76; TEMP 98.3
[2021-03-21 13:16] LABS: BASO # 0.1 (0.0-0.2); BASO % 0.9 % (0.0-2.0); EOS # 0.2 (0.0-0.7); EOS % 3.1 % (0-4.0); GRAN # 3.7 (1.4-6.5); GRAN % 53.4 % (42.2-75.2); HEMATOCRIT 39.4 % (37.0-47.0); HEMOGLOBIN 13.1 g/dl (12.5-16.0); LYMPH # 2.2 (1.2-3.4); LYMPH % 31.8 % (20.0-51.0); MEAN CELL VOLUME 91 fl (80.0-100.0); MEAN CORPUSCULAR HEMOGLOBIN 30 pg (27.0-31.0); MEAN CORPUSCULAR HGB CONC 33 g/dl (33.0-37.0); MEAN PLATELET VOLUME 9.9 fl (7.4-10.4); MONO # 0.7 (0.1-0.6); MONO % 10.5 % (1.7-9.3); PLATELET COUNT 282 K/mm3 (130-400); RED BLOOD COUNT 4.34 M/mm3 (4.10-5.30); REDCELL DISTRIBUTION WIDTH-CV 12.6 % (11.5-14.5)
[2021-03-21 13:38] LABS: ALBUMIN 4.1 gm/dL (3.5-5.0); BILIRUBIN,TOTAL 0.2 mg/dL (0.0-1.0); CREATININE, serum 0.75 (0.52-1.25); POTASSIUM 4.1 mmol/L (3.4-5.0); TOTAL PROTEIN 7.7 gm/dL (6.4-8.2)
== END 2021-03-21 16:47 | disposition home or self-care (01) ==
LOC: EUO 12:45
PROVIDERS: Internal Medicine Gastroenterology
DX: K51.90 Ulcerative colitis, unspecified, without complications (principal); Z95.9 Presence of cardiac and vascular implant and graft, unspecified
CPT/HCPCS: J1200; J1644; J7040; Q5103

== ENCOUNTER 2021-05-02 12:36 | Outpatient (CLI) | payer MEDICARE, OTHER ==
[2006-03-14 06:23] VITALS: BP 157/76
[~2021-05-02] VITALS: Ht 162.6 cm; Wt 84.8 kg
[2021-05-02 13:14] LABS: BASO # 0.1 K/mm3 (0.0-0.2); BASO % 0.8 % (0.0-2.0); EOS # 0.2 K/mm3 (0.0-0.7); EOS % 3.3 % (0-4.0); GRAN # 3.4 K/mm3 (1.4-6.5); GRAN % 46.4 % (42.2-75.2); HEMATOCRIT 37.4 % (37.0-47.0); HEMOGLOBIN 12.4 g/dl (12.5-16.0); LYMPH # 2.8 K/mm3 (1.2-3.4); LYMPH % 38.4 % (20.0-51.0); MEAN CELL VOLUME 91 fl (80.0-100.0); MEAN CORPUSCULAR HEMOGLOBIN 30 pg (27.0-31.0); MEAN CORPUSCULAR HGB CONC 33 g/dl (33.0-37.0); MEAN PLATELET VOLUME 9.8 fl (7.4-10.4); MONO # 0.8 K/mm3 (0.1-0.6); PLATELET COUNT 263 K/mm3 (130-400); REDCELL DISTRIBUTION WIDTH-CV 12.9 % (11.5-14.5)
[2021-05-02 13:40] LABS: ALBUMIN 3.6 gm/dL (3.4-4.8); BILIRUBIN,TOTAL 0.4 mg/dL (0.2-1.2); CALCIUM 9.5 mg/dL (8.4-10.2); CREATININE, serum 0.81 mg/dL (0.57-1.11); POTASSIUM 4.2 mmol/L (3.5-4.5); TOTAL PROTEIN 7.3 gm/dL (6.2-8.1)
[2021-05-02 14:15] VITALS: BP 116/62; PULSE 63; TEMP 98.1
[2021-05-02 14:45] VITALS: BP 115/50; PULSE 60
[2021-05-02 15:15] VITALS: BP 120/60; PULSE 65; TEMP 98
[2021-05-02 15:45] VITALS: BP 115/59; PULSE 66
[2021-05-02 16:15] VITALS: BP 112/58; PULSE 62; TEMP 97.8
== END 2021-05-02 16:30 | disposition home or self-care (01) ==
LOC: EUO 12:36
PROVIDERS: Internal Medicine Gastroenterology
DX: K51.90 Ulcerative colitis, unspecified, without complications (principal); Z95.9 Presence of cardiac and vascular implant and graft, unspecified
CPT/HCPCS: J1644; J7050; Q5103

== ENCOUNTER 2021-06-13 10:45 | Outpatient (CLI) | payer MEDICARE, OTHER ==
[2006-03-14 06:23] VITALS: BP 157/76
[~2021-06-13] VITALS: Ht 162.6 cm; Wt 85.4 kg
[2021-06-13] VITALS (8 sets, daily range): BP systolic 110–120; BP diastolic 56–70; PULSE 70–82; TEMP 98.5
[2021-06-13 11:55] LABS: BASO % 0.7 % (0.0-2.0); EOS # 0.2 K/mm3 (0.0-0.7); EOS % 2.4 % (0-4.0); GRAN # 4.2 K/mm3 (1.4-6.5); GRAN % 69.2 % (42.2-75.2); HEMATOCRIT 37.5 % (37.0-47.0); HEMOGLOBIN 12.2 g/dl (12.5-16.0); LYMPH # 1.1 K/mm3 (1.2-3.4); LYMPH % 17.1 % (20.0-51.0); MEAN CELL VOLUME 93 fl (80.0-100.0); MEAN CORPUSCULAR HEMOGLOBIN 30 pg (27.0-31.0); MEAN CORPUSCULAR HGB CONC 33 g/dl (33.0-37.0); MEAN PLATELET VOLUME 9.7 fl (7.4-10.4); MONO # 0.6 K/mm3 (0.1-0.6); MONO % 10.4 % (1.7-9.3); PLATELET COUNT 250 K/mm3 (130-400); RED BLOOD COUNT 4.05 M/mm3 (4.10-5.30); REDCELL DISTRIBUTION WIDTH-CV 13.2 % (11.5-14.5)
[2021-06-13 12:07] LABS: ALBUMIN 3.3 gm/dL (3.4-4.8); BILIRUBIN,TOTAL 0.4 mg/dL (0.2-1.2); CALCIUM 9.3 mg/dL (8.4-10.2); CREATININE, serum 0.81 mg/dL (0.57-1.11); POTASSIUM 4.1 mmol/L (3.5-4.5); TOTAL PROTEIN 6.6 gm/dL (6.2-8.1)
[2021-06-13] MEDS ORDERED: PREDNISONE 5MG5 MG PO (12:10)
[2021-06-20 13:23] LABS: INFLIX ANTIBODY INTERPRETATION SEE PCI FOR RESULTS
== END 2021-06-13 16:18 | disposition home or self-care (01) ==
LOC: EUO 10:45
PROVIDERS: Internal Medicine Gastroenterology
DX: Z00.00 Encounter for general adult medical examination without abnormal findings (principal); Z79.899 Other long term (current) drug therapy; K51.00 Ulcerative (chronic) pancolitis without complications
CPT/HCPCS: J1200; J1644; J2930; J7040; Q5103

== ENCOUNTER 2021-07-25 08:44 | Outpatient (CLI) | payer MEDICARE, OTHER ==
[2006-03-14 06:23] VITALS: BP 157/76
[~2021-07-25] VITALS: Ht 162.6 cm; Wt 86.9 kg
[2021-07-25] VITALS (8 sets, daily range): BP systolic 110–125; BP diastolic 54–70; PULSE 64–79; TEMP 98–98.2
[~2021-07-25 08:44] MED LIST changes: +PREDNISONE 5MG5 MG PO
[2021-07-25 09:20] LABS: BASO # 0.1 K/mm3 (0.0-0.2); BASO % 0.9 % (0.0-2.0); EOS # 0.3 K/mm3 (0.0-0.7); EOS % 4.1 % (0.0-4.0); GRAN # 2.9 K/mm3 (1.4-6.5); GRAN % 45.7 % (42.2-75.2); HEMATOCRIT 37.9 % (37.0-47.0); HEMOGLOBIN 12.7 g/dl (12.5-16.0); LYMPH # 2.4 K/mm3 (1.2-3.4); LYMPH % 38.1 % (20.0-51.0); MEAN CELL VOLUME 90 fl (80.0-100.0); MEAN CORPUSCULAR HEMOGLOBIN 30 pg (27-31); MEAN CORPUSCULAR HGB CONC 34 g/dl (33.0-37.0); MEAN PLATELET VOLUME 9.6 fl (7.4-10.4); MONO # 0.7 K/mm3 (0.1-0.6); PLATELET COUNT 290 K/mm3 (130-400); RED BLOOD COUNT 4.21 M/mm3 (4.10-5.30); REDCELL DISTRIBUTION WIDTH-CV 13.1 % (11.5-14.5)
[2021-07-25 09:37] LABS: ALBUMIN 3.6 gm/dL (3.4-4.8); BILIRUBIN,TOTAL 0.5 mg/dL (0.2-1.2); CALCIUM 8.9 mg/dL (8.4-10.2); CREATININE, serum 0.77 mg/dL (0.57-1.11); POTASSIUM 4.1 mmol/L (3.5-4.5); TOTAL PROTEIN 7.1 gm/dL (6.2-8.1)
== END 2021-07-25 13:30 | disposition home or self-care (01) ==
LOC: EUO 08:44
PROVIDERS: Internal Medicine Gastroenterology
DX: Z00.00 Encounter for general adult medical examination without abnormal findings (principal); K51.90 Ulcerative colitis, unspecified, without complications; Z79.899 Other long term (current) drug therapy
CPT/HCPCS: J1200; J1644; J2930; J7040; Q5103

== ENCOUNTER 2021-09-05 10:45 | Outpatient (CLI) | payer MEDICARE, OTHER ==
[2006-03-14 06:23] VITALS: BP 157/76
[2021-09-05] VITALS (7 sets, daily range): BP systolic 120–137; BP diastolic 61–73; PULSE 67–99; TEMP 97.9–98.3
[~2021-09-05] VITALS: Ht 162.6 cm; Wt 87.1 kg
[~2021-09-05 10:45] MED LIST changes: +MASON NATURAL2000 IU PO; -PROBIOTIC FORMU1 CAP PO; -VITAMIN D 1001000 IU PO
[2021-09-05 11:21] LABS: HEMOGLOBIN 12.1 g/dl (12.5-16.0); MEAN CELL VOLUME 90 fl (80.0-100.0); MEAN CORPUSCULAR HEMOGLOBIN 30 pg (27-31); MEAN CORPUSCULAR HGB CONC 34 g/dl (33.0-37.0); MEAN PLATELET VOLUME 9.7 fl (7.4-10.4); PLATELET COUNT 264 K/mm3 (130-400); REDCELL DISTRIBUTION WIDTH-CV 12.6 % (11.5-14.5)
[2021-09-05 11:33] LABS: HEMATOCRIT 36.1 % (37.0-47.0)
[2021-09-05 11:38] LABS: ALBUMIN 3.5 gm/dL (3.4-4.8); BILIRUBIN,TOTAL 0.3 mg/dL (0.2-1.2); CALCIUM 8.7 mg/dL (8.4-10.2); CREATININE, serum 0.78 mg/dL (0.57-1.11); POTASSIUM 4.2 mmol/L (3.5-4.5); TOTAL PROTEIN 6.8 gm/dL (6.2-8.1)
[2021-09-05] MEDS ORDERED: B-12 500 MCG PO (12:12)
== END 2021-09-05 15:15 | disposition home or self-care (01) ==
LOC: EUO 10:45
PROVIDERS: Internal Medicine Gastroenterology
DX: Z00.00 Encounter for general adult medical examination without abnormal findings (principal); K51.00 Ulcerative (chronic) pancolitis without complications; K51.90 Ulcerative colitis, unspecified, without complications; Z79.899 Other long term (current) drug therapy
CPT/HCPCS: J1200; J1644; J2930; J7050; Q5103

== ENCOUNTER 2021-10-17 10:48 | Outpatient (CLI) | payer MEDICARE, OTHER ==
[2006-03-14 06:23] VITALS: BP 157/76
[~2021-10-17] VITALS: Ht 162.6 cm; Wt 84.9 kg
[~2021-10-17 10:48] MED LIST changes: +B-12 500 MCG PO
[2021-10-17 12:15] VITALS: BP 115/57; PULSE 69; TEMP 97.7
[2021-10-17 13:11] VITALS: BP 121/64; PULSE 62
[2021-10-17 13:14] LABS: ALBUMIN 3.6 gm/dL (3.4-4.8); BILIRUBIN,TOTAL 0.4 mg/dL (0.2-1.2); CALCIUM 8.6 mg/dL (8.4-10.2); CREATININE, serum 0.8 mg/dL (0.57-1.11); POTASSIUM 4.1 mmol/L (3.5-4.5); TOTAL PROTEIN 7.3 gm/dL (6.2-8.1)
[2021-10-17 13:16] LABS: BASO # 0.1 K/mm3 (0.0-0.2); BASO % 0.9 % (0.0-2.0); EOS # 0.2 K/mm3 (0.0-0.7); EOS % 3.2 % (0.0-4.0); GRAN # 2.7 K/mm3 (1.4-6.5); GRAN % 50.3 % (42.2-75.2); HEMATOCRIT 38.1 % (37.0-47.0); HEMOGLOBIN 12.7 g/dl (12.5-16.0); LYMPH # 1.9 K/mm3 (1.2-3.4); LYMPH % 34.8 % (20.0-51.0); MEAN CELL VOLUME 92 fl (80.0-100.0); MEAN CORPUSCULAR HEMOGLOBIN 31 pg (27-31); MEAN CORPUSCULAR HGB CONC 33 g/dl (33.0-37.0); MEAN PLATELET VOLUME 10.2 fl (7.4-10.4); MONO # 0.6 K/mm3 (0.1-0.6); MONO % 10.6 % (1.7-9.3); PLATELET COUNT 273 K/mm3 (130-400); RED BLOOD COUNT 4.14 M/mm3 (4.10-5.30); REDCELL DISTRIBUTION WIDTH-CV 12.6 % (11.5-14.5)
[2021-10-17 13:30] VITALS: BP 121/60; PULSE 67
[2021-10-17 14:00] VITALS: BP 112/55; PULSE 67
[2021-10-17 14:30] VITALS: BP 113/55; PULSE 71
[2021-10-17 15:00] VITALS: BP 115/60; PULSE 67; TEMP 97.7
== END 2021-10-17 16:44 | disposition home or self-care (01) ==
LOC: EUO 10:48
PROVIDERS: Internal Medicine Gastroenterology
DX: Z00.00 Encounter for general adult medical examination without abnormal findings (principal); K51.00 Ulcerative (chronic) pancolitis without complications; Z79.899 Other long term (current) drug therapy
CPT/HCPCS: J1200; J1644; J2930; J7050; Q5103

== ENCOUNTER 2021-11-29 12:56 | Outpatient (CLI) | payer MEDICARE, OTHER ==
[2006-03-14 06:23] VITALS: BP 157/76
[~2021-11-29] VITALS: Ht 162.6 cm; Wt 83.6 kg
[2021-11-29 13:54] LABS: BASO # 0.1 K/mm3 (0.0-0.2); BASO % 0.7 % (0.0-2.0); EOS # 0.1 K/mm3 (0.0-0.7); EOS % 1.6 % (0.0-4.0); GRAN # 2.7 K/mm3 (1.4-6.5); GRAN % 39.8 % (42.2-75.2); HEMATOCRIT 37.4 % (37.0-47.0); HEMOGLOBIN 12.5 g/dl (12.5-16.0); LYMPH # 3.1 K/mm3 (1.2-3.4); LYMPH % 44.9 % (20.0-51.0); MEAN CELL VOLUME 90 fl (80.0-100.0); MEAN CORPUSCULAR HEMOGLOBIN 30 pg (27-31); MEAN CORPUSCULAR HGB CONC 33 g/dl (33.0-37.0); MONO # 0.9 K/mm3 (0.1-0.6); MONO % 12.9 % (1.7-9.3); PLATELET COUNT 276 K/mm3 (130-400); RED BLOOD COUNT 4.15 M/mm3 (4.10-5.30); REDCELL DISTRIBUTION WIDTH-CV 12.8 % (11.5-14.5)
[2021-11-29 14:13] LABS: ALBUMIN 3.6 gm/dL (3.4-4.8); BILIRUBIN,TOTAL 0.3 mg/dL (0.2-1.2); CALCIUM 8.4 mg/dL (8.4-10.2); CREATININE, serum 0.82 mg/dL (0.57-1.11); POTASSIUM 3.7 mmol/L (3.5-4.5); TOTAL PROTEIN 7.1 gm/dL (6.2-8.1)
[2021-11-29 14:31] VITALS: BP 121/60; PULSE 74; TEMP 98.2
[2021-11-29 15:12] VITALS: BP 113/57; PULSE 69
[2021-11-29 15:30] VITALS: BP 113/59; PULSE 70
[2021-11-29 16:00] VITALS: BP 106/59; PULSE 68
[2021-11-29 16:30] VITALS: BP 109/58; PULSE 68
[2021-11-29 17:00] VITALS: BP 109/56; PULSE 68; PULSE 72; TEMP 98.2
== END 2021-11-29 17:24 | disposition home or self-care (01) ==
LOC: EUO 12:56
PROVIDERS: Internal Medicine Gastroenterology
DX: K51.90 Ulcerative colitis, unspecified, without complications (principal)
CPT/HCPCS: J1200; J1644; J2930; J7050; Q5103

== ENCOUNTER 2022-01-10 12:44 | Outpatient (CLI) | payer MEDICARE, OTHER ==
[2006-03-14 06:23] VITALS: BP 157/76
[~2022-01-10] VITALS: Ht 162.6 cm; Wt 85.4 kg
[2022-01-10 13:15] LABS: BASO # 0.1 K/mm3 (0.0-0.2); BASO % 0.7 % (0.0-2.0); EOS # 0.2 K/mm3 (0.0-0.7); EOS % 2.8 % (0.0-4.0); GRAN # 3.1 K/mm3 (1.4-6.5); GRAN % 44.8 % (42.2-75.2); HEMOGLOBIN 11.8 g/dl (12.5-16.0); LYMPH # 2.6 K/mm3 (1.2-3.4); LYMPH % 37.9 % (20.0-51.0); MEAN CELL VOLUME 91 fl (80.0-100.0); MEAN CORPUSCULAR HEMOGLOBIN 30 pg (27-31); MEAN CORPUSCULAR HGB CONC 33 g/dl (33.0-37.0); MEAN PLATELET VOLUME 9.7 fl (7.4-10.4); MONO # 0.9 K/mm3 (0.1-0.6); MONO % 13.7 % (1.7-9.3); PLATELET COUNT 261 K/mm3 (130-400); RED BLOOD COUNT 3.95 M/mm3 (4.10-5.30); REDCELL DISTRIBUTION WIDTH-CV 12.8 % (11.5-14.5)
[2022-01-10 13:17] LABS: HEMATOCRIT 35.8 % (37.0-47.0)
[2022-01-10 13:32] LABS: ALBUMIN 3.5 gm/dL (3.4-4.8); BILIRUBIN,TOTAL 0.3 mg/dL (0.2-1.2); CALCIUM 8.9 mg/dL (8.4-10.2); CREATININE, serum 0.79 mg/dL (0.57-1.11); POTASSIUM 3.9 mmol/L (3.5-4.5)
[2022-01-10 14:35] VITALS: BP 137/80; PULSE 75; TEMP 97.9
[2022-01-10 16:00] VITALS: BP 138/81; PULSE 79
[2022-01-10 16:30] VITALS: BP 137/72; PULSE 70
[2022-01-10 17:00] VITALS: BP 130/71; PULSE 68
[2022-01-10 17:30] VITALS: BP 113/77; PULSE 65; TEMP 97.3
== END 2022-01-10 18:00 | disposition home or self-care (01) ==
LOC: EUO 12:44
PROVIDERS: Internal Medicine Gastroenterology
DX: K51.90 Ulcerative colitis, unspecified, without complications (principal)
CPT/HCPCS: J1200; J1644; J2920; J7050; Q5103

== ENCOUNTER 2022-02-21 10:40 | Outpatient (CLI) | payer MEDICARE, OTHER ==
[2006-03-14 06:23] VITALS: BP 157/76
[~2022-02-21] VITALS: Ht 162.6 cm; Wt 82.8 kg
[2022-02-21 11:28] LABS: BASO # 0.1 K/mm3 (0.0-0.2); BASO % 0.7 % (0.0-2.0); EOS # 0.2 K/mm3 (0.0-0.7); EOS % 3.2 % (0.0-4.0); GRAN % 42.7 % (42.2-75.2); HEMATOCRIT 38.7 % (37.0-47.0); HEMOGLOBIN 12.7 g/dl (12.5-16.0); LYMPH # 2.9 K/mm3 (1.2-3.4); LYMPH % 41.4 % (20.0-51.0); MEAN CELL VOLUME 92 fl (80.0-100.0); MEAN CORPUSCULAR HEMOGLOBIN 30 pg (27-31); MEAN CORPUSCULAR HGB CONC 33 g/dl (33.0-37.0); MEAN PLATELET VOLUME 9.8 fl (7.4-10.4); MONO # 0.8 K/mm3 (0.1-0.6); MONO % 11.7 % (1.7-9.3); PLATELET COUNT 277 K/mm3 (130-400); REDCELL DISTRIBUTION WIDTH-CV 12.6 % (11.5-14.5)
[2022-02-21 11:52] LABS: ALBUMIN 3.6 gm/dL (3.4-4.8); BILIRUBIN,TOTAL 0.4 mg/dL (0.2-1.2); CALCIUM 9.4 mg/dL (8.4-10.2); CREATININE, serum 0.78 mg/dL (0.57-1.11); POTASSIUM 4.1 mmol/L (3.5-4.5); TOTAL PROTEIN 7.2 gm/dL (6.2-8.1)
[2022-02-21 12:33] VITALS: BP 124/56; PULSE 68; TEMP 98.4
[2022-02-21 13:04] VITALS: BP 111/69; PULSE 66
[2022-02-21 13:34] VITALS: BP 112/66; PULSE 65
[2022-02-21 14:04] VITALS: BP 109/68; PULSE 66
[2022-02-21 14:34] VITALS: BP 112/76; PULSE 76
== END 2022-02-21 17:12 | disposition home or self-care (01) ==
LOC: EUO 10:40
PROVIDERS: Internal Medicine Gastroenterology
DX: Z00.00 Encounter for general adult medical examination without abnormal findings (principal); E61.1 Iron deficiency; K51.90 Ulcerative colitis, unspecified, without complications; Z79.899 Other long term (current) drug therapy
CPT/HCPCS: J1200; J1644; J2930; J7050; Q5103

== ENCOUNTER 2022-04-12 10:58 | Outpatient (CLI) | payer MEDICARE, OTHER ==
[2006-03-14 06:23] VITALS: BP 157/76
[2022-04-12] VITALS (9 sets, daily range): BP systolic 11–126; BP diastolic 54–73; PULSE 59–72; TEMP 97.9
[~2022-04-12] VITALS: Ht 162.6 cm; Wt 83.4 kg
[2022-04-12 12:47] LABS: BASO # 0.1 K/mm3 (0.0-0.2); BASO % 0.9 % (0.0-2.0); EOS # 0.2 K/mm3 (0.0-0.7); EOS % 3.3 % (0.0-4.0); GRAN # 3.4 K/mm3 (1.4-6.5); GRAN % 49.1 % (42.2-75.2); HEMATOCRIT 37.4 % (37.0-47.0); HEMOGLOBIN 12.7 g/dl (12.5-16.0); LYMPH # 2.5 K/mm3 (1.2-3.4); MEAN CELL VOLUME 91 fl (80.0-100.0); MEAN CORPUSCULAR HEMOGLOBIN 31 pg (27-31); MEAN CORPUSCULAR HGB CONC 34 g/dl (33.0-37.0); MEAN PLATELET VOLUME 10.1 fl (7.4-10.4); MONO # 0.8 K/mm3 (0.1-0.6); MONO % 11.6 % (1.7-9.3); PLATELET COUNT 264 K/mm3 (130-400); RED BLOOD COUNT 4.13 M/mm3 (4.10-5.30); REDCELL DISTRIBUTION WIDTH-CV 12.8 % (11.5-14.5)
[2022-04-12 12:50] LABS: ALBUMIN 3.6 gm/dL (3.4-4.8); BILIRUBIN,TOTAL 0.3 mg/dL (0.2-1.2); CALCIUM 8.8 mg/dL (8.4-10.2); CREATININE, serum 0.76 mg/dL (0.57-1.11); POTASSIUM 4.2 mmol/L (3.5-4.5)
== END 2022-04-12 17:13 ==
LOC: EUO 10:58
PROVIDERS: Internal Medicine Gastroenterology
DX: K51.90 Ulcerative colitis, unspecified, without complications (principal)
CPT/HCPCS: J1200; J1644; J7050; Q5103